=== PATIENT | male | born 1950 | race Asian ===

== ENCOUNTER 2017-11-27 15:39 | Day surgery (SDC) | payer OTHER ==
[2017-11-27] MEDS: BUPIVACAINE 0.5% (SDV) 30 ML INJ
[~2017-11-27 15:39] MED LIST: CEFAZOLIN 2 GM/50 ML (PMX) 50 ML IVPB; SOD CHLORIDE 0.9% 1,000 ML IV
[2017-11-27] MEDS ORDERED: PROPOFOL 20 ML (16:52)
[2017-11-27] MEDS ORDERED: CEFAZOLIN 1 GM INJ (16:52)
[2017-11-27] MEDS ORDERED: MIDAZOLAM 1 MG/ML 2 ML INJ (16:52)
[2017-11-27] MEDS ORDERED: ROCURONIUM 50 MG INJ (16:52)
[2017-11-27] MEDS ORDERED: DEXAMETHASONE 4 MG/ML 1 ML INJ (17:24)
[2017-11-27] MEDS ORDERED: KETOROLAC 30 MG INJ (17:24)
[2017-11-27] MEDS ORDERED: ONDANSETRON 4 MG INJ (17:24)
[2017-11-27] MEDS ORDERED: ACETAMINOPHEN 1000MG/100ML IV 100 ML (17:24)
[2017-11-27] MEDS ORDERED: METOCLOPRAMIDE 10 MG INJ (17:24)
[2017-11-27] MEDS ORDERED: SUGAMMADEX SODIUM 200 MG/2 ML VIAL IV (17:24)
[2017-11-27] MEDS ORDERED: HYDROmorphONE (0.2 MG/ML) 10ML SYG IV ×2 (17:30)
[2017-11-27] MEDS ORDERED: METOCLOPRAMIDE 10 MG INJ IV (17:30)
[2017-11-27] MEDS ORDERED: HYDROCODONE/APAP (5/325) TAB PO (17:30)
[2017-11-27] MEDS ORDERED: OXYCODONE/ACETAMINOPHEN (5/325) TAB PO ×2 (17:30)
[2017-11-27] MEDS ORDERED: hydrALAzine 20 MG INJ IV (17:30)
[2017-11-27] MEDS ORDERED: MEPERIDINE 25 MG INJ IV (17:30)
[2017-11-27] MEDS ORDERED: LABETALOL HCL 20MG INJ IV (17:30)
[2017-11-27] MEDS ORDERED: FENTAnyl 50 MCG/ML VIAL IV ×3 (17:30)
[2017-11-27] MEDS ORDERED: EPHEDrine SULFATE 50 MG/5 ML SYG IV (17:30)
[2017-11-27] MEDS ORDERED: DIPHENHYDRAMINE 50 MG INJ IV (17:30)
[2017-11-27] MEDS ORDERED: ONDANSETRON 4 MG INJ IV (17:30)
== END 2017-11-27 18:45 | disposition home or self-care (01) ==
LOC: SDS 15:39
DX: K60.3 Anal fistula (principal); E11.9 Type 2 diabetes mellitus without complications; I10 Essential (primary) hypertension
CPT/HCPCS: 46270; 88304